=== PATIENT | female | born 2000 | race African-American/Black ===

== ENCOUNTER 2023-03-27 15:40 | Emergency (ER) | payer OTHER ==
[~2023-03-27] VITALS: Ht 160 cm; Wt 77.6 kg
[2023-03-27 16:12] VITALS: BP 130/70; PULSE 88; RESP 20; O2SAT 100
[2023-03-27 18:21] LABS: BASOPHILS % (AUTO) 0.5 % (0.0-2.0); EOSINOPHILS # (AUTO) 0.1 K/uL (0-0.4); EOSINOPHILS % (AUTO) 1.3 % (0.0-4.0); HEMATOCRIT 36.5 % (36-48); HEMOGLOBIN 12.3 g/dL (12.0-16.0); LYMPHOCYTES # (AUTO) 2.2 K/uL (2.5-16.5); LYMPHOCYTES % (AUTO) 27.1 % (20.5-51.1); MEAN CORPUSCULAR HEMOGLOBIN 31 pg (27-31); MEAN CORPUSCULAR HGB CONC 34 g/dL (33-37); MEAN CORPUSCULAR VOLUME 92.8 fL (80-94); MONOCYTES # (AUTO) 0.6 K/uL (0.8-1.0); MONOCYTES % (AUTO) 7.2 % (1.7-9.3); NEUTROPHILS # (AUTO) 5.1 K/uL (1.8-7.7); NEUTROPHILS % (AUTO) 63.9 % (42.2-75.2); PLATELET COUNT (AUTO) 283 K/uL (140-450); RED BLOOD CELL COUNT(AUTO) 3.94 MIL/uL (4.20-5.40); RED CELL DISTRIBUTION WIDTH 13.6 % (11.6-13.7); WHITE BLOOD COUNT (AUTO) 8.1 K/uL (4.8-10.8)
--- NOTE | 2023-03-27 20:25 | NUR ---
URINE WALKED TO LAB.
[2023-03-27 20:46] LABS: APPEARANCE,URINE CLEAR (CLEAR); BILIRUBIN,URINE NEGATIVE (NEGATIVE); BLOOD, URINE 2+ (NEGATIVE); COLOR,URINE YELLOW (YELLOW); LEUKOCYTE ESTERASE ,URINE NEGATIVE (NEGATIVE); NITRITE, URINE NEGATIVE (NEGATIVE); UGLUCOSE NEGATIVE (NEGATIVE)
[2023-03-27 21:06] LABS: RBC,URINE 11-20 (MOD) /HPF (0-5)
[2023-03-27 21:07] LABS: TRICHOMONAS,URINE None Seen /HPF (None Seen); YEAST,URINE None Seen /HPF (None Seen)
--- NOTE | 2023-03-27 21:20 | NUR ---
CALLED PT FOR EXAM. NO ANSWER IN LOBBY OR OUTSIDE. CALLED PT ON PHONE NUMBER PROVIDED. DR. BENNETT SPOKE WITH PT ABOUT RESULTS AND SYMPTOMS. PT WILL RETURN TO ER FOR FURTHER TESTING.
--- NOTE | 2023-03-27 22:11 | NUR ---
PT TAKEN TO BED 4
--- NOTE | 2023-03-27 22:25 | NUR ---
Patient was seen by ER MD in Room 4.
--- NOTE | 2023-03-27 22:32 | NUR ---
Patient received on bed lying and awake. Alert and oriented x4. No acute distress. Complained of pain on the left suprapubic area with scale of 5/10. Respirations even and unlabored. Call light within reach.
--- NOTE | 2023-03-27 22:53 | NUR ---
pt ambulatory to restroom without assistance
[2023-03-27] MEDS: ACETAMINOPHEN 325 MG TAB PO ONE (23:27)
--- NOTE | 2023-03-28 00:34 | NUR ---
Dr. Michele examining patient.
[2023-03-28] MEDS ORDERED: CEPH-588 PO (00:53)
[2023-03-28 01:08] VITALS: BP 127/63; PULSE 82; RESP 16; TEMP 97.7; O2SAT 99
== END 2023-03-28 01:06 | disposition home or self-care (01) ==
LOC: MED 15:40
DX: O34.81 Maternal care for other abnormalities of pelvic organs, first trimester (principal); O98.911 Unspecified maternal infectious and parasitic disease complicating pregnancy, first trimester; O20.8 Other hemorrhage in early pregnancy; N83.202 Unspecified ovarian cyst, left side; R82.71 Bacteriuria; Z3A.01 Less than 8 weeks gestation of pregnancy; Z79.899 Other long term (current) drug therapy
CPT/HCPCS: 36415; 76801; 81001; 81025; 84702; 85025; 86900; 86901; 99284